=== PATIENT | female | born 1945 | race American Indian/Alaskan Native ===

== ENCOUNTER 2017-12-28 05:41 | Day surgery (SDC) | payer OTHER ==
[2017-12-28] MEDS ORDERED: Lactated Ringer's 1,000 ML IV ONE ×2 (08:00)
[2017-12-28] MEDS ORDERED: Propofol 10 mg/ml Inj (20 ML) ONE (08:04)
--- NOTE | 2017-12-28 08:07 | CP.SDSHP ---
Same Day Surgery H & P - History Proposed Procedure: colonoscopy Pre-Op Diagnosis: Screening for colon cancer - Previous Medical/Surgical History Cardiac: Hypertension, ASHD/CAD, Other (hyperlipidemia) Endocrine/Metabolic: Diabetes, Obesity Previous Surgical History: PTCA with stents. Femoral stents. CELESTINA/BSO. Ectopic . Breast cysts - Allergies Allergies: Allergies No Known Allergies Allergy (Verified 12/28/17 06:17) - Physical Exam Vital Signs: Vital Signs 12/28/17 05:50 Temperature 98.4 F Pulse Rate 68 Respiratory 19 Rate Blood Pressure 140/79 O2 Sat by Pulse 98 Oximetry Mental Status: Alert & Oriented x3 Neuro: WNL Heart: WNL Lungs: WNL GI: WNL - Impression Impression: Screening for colon cancer Pt. Evaluated Today:Candidate for Anesthesia & Procedure: Yes - Date & Time Date: 12/28/17 Time: 08:07 Short Stay Discharge - Short Stay Discharge Admitting Diagnosis/Reason for Visit: SCREENING / CHANGE IN BOWEL HABIT Disposition: HOME/ ROUTINE
[2017-12-28] MEDS ORDERED: Lactated Ringer's 500 ML IV SCH (08:15)
[2017-12-28 08:49] VITALS: TEMP 96.9
[2017-12-28 09:09] VITALS: O2SAT 100
[2017-12-28 09:58] VITALS: BP 118/60; PULSE 70; RESP 20
== END 2017-12-28 09:45 | disposition home or self-care (01) ==
LOC: C.ENDO 05:41
PROVIDERS: ATTEND Internal Medicine Gastroenterology
DX: Z12.11 Encounter for screening for malignant neoplasm of colon (principal); R19.4 Change in bowel habit; I25.9 Chronic ischemic heart disease, unspecified; K57.90 Diverticulosis of intestine, part unspecified, without perforation or abscess without bleeding; K64.8 Other hemorrhoids
CPT/HCPCS: 45380; 82948; 88305; J2704; J7120

== ENCOUNTER → 2018-05-23 | Outpatient (CLI) | payer OTHER | END | disposition home or self-care (01) | LOC: C.USIC 10:32 | DX: I12.9 Hypertensive chronic kidney disease with stage 1 through stage 4 chronic kidney disease, or unspecified chronic kidney disease (principal); N18.9 Chronic kidney disease, unspecified; N28.1 Cyst of kidney, acquired ==